=== PATIENT | female | born 1955 | race Two or more races ===

== ENCOUNTER 2022-04-04 15:29 | Emergency (ER) | payer OTHER ==
[~2022-04-04] VITALS: Ht 160 cm; Wt 68.0 kg
--- NOTE | 2022-04-04 15:40 | NUR ---
BIBA RA7 "from Home Cough/HERNADEZ/weakness started today". PLACED IN BED, AAOX4, BREATHING EVEN AND UNLABORED SATURATING AT 98%RA.
--- NOTE | 2022-04-04 15:45 | NUR ---
BLOOD DRAWN AND SENT TO LAB
[2022-04-04] MEDS ORDERED: KETOROLAC TROMETHAMINE INJ 30 MG/ML VIAL IV ONE (16:00)
[2022-04-04] MEDS ORDERED: IV NS 0.9% 1,000 ML BAG IV ONE (16:00)
[2022-04-04] MEDS ORDERED: KETOROLAC TROMETHAMINE 15 MG/ML VIAL ONE (16:01)
[2022-04-04 16:22] LABS: BASOPHILS % (AUTO) 0.4 % (0.0-2.0); EOSINOPHILS % (AUTO) 1.7 % (0.0-6.0); HEMATOCRIT 47 % (33-45); LYMPHOCYTES # (AUTO) 1.7 K/uL (0.8-4.8); MEAN CORPUSCULAR HGB CONC 32 g/dl (31.0-36.0); MEAN CORPUSCULAR VOLUME 90 fL (82-100); MONOCYTES # (AUTO) 0.5 K/uL (0.1-1.30); MONOCYTES % (AUTO) 4.9 % (2.0-12.0); PLATELET COUNT (AUTO) 304 K/uL (150-450); RED BLOOD CELL COUNT(AUTO) 5.16 MIL/uL (4.0-5.2); WHITE BLOOD COUNT (AUTO) 10.3 K/uL (4.3-11.0)
[2022-04-04 16:40] LABS: CALCIUM, SERUM 9.5 mg/dL (8.5-10.1); CARBON DIOXIDE 29 mmol/L (21-32); CHLORIDE 94 mmol/L (98-107); CREATININE 1.2 mg/dL (0.6-1.3); GLUCOSE 259 mg/dL (74-106); POTASSIUM 3.9 mmol/L (3.5-5.1); SODIUM SERUM 132 mmol/L (136-145); UREA NITROGEN, BLOOD 19 mg/dL (7-18)
[2022-04-04 16:46] LABS: ALANINE AMINOTRANSFERASE 24 U/L (12-78); ALKALINE PHOSPHATASE 74 U/L (46-116); ASPARTATE AMINOTRANSFERASE 17 U/L (15-37); BILIRUBIN,DIRECT 0.1 mg/dL (0.0-0.2); BILIRUBIN,TOTAL 0.5 mg/dL (0.2-1.0); TOTAL PROTEIN, SERUM 8.2 g/dL (6.4-8.2)
[2022-04-04 16:55] LABS: THYROID STIMULATING HORMONE 1.251 uIU/mL (0.358-3.74)
--- NOTE | 2022-04-04 17:42 | NUR ---
URINE SAMPLE SENT TO LAB
[2022-04-04 18:01] LABS: BILIRUBIN,URINE NEGATIVE (NEGATIVE); COLOR,URINE YELLOW (YELLOW); LEUKOCYTE ESTERASE ,URINE NEGATIVE (NEGATIVE); NITRITE, URINE NEGATIVE (NEGATIVE); PROTEIN,URINE NEGATIVE (NEGATIVE); UGLUCOSE 1+ mg/dL (NEGATIVE); UROBILINOGEN,URINE 0.2 EU/dL (0.2)
[2022-04-04 18:22] LABS: BACTERIA,URINE None seen /HPF (None Seen); RBC,URINE 0-2 /HPF (0-2); WBC,URINE 0-2 /HPF (0-3)
[2022-04-04] MEDS ORDERED: IBUP-1955 PO (18:34)
[2022-04-04] MEDS ORDERED: BENZ-13 PO (18:34)
--- NOTE | 2022-04-04 19:00 | NUR ---
IV removed. Catheter intact and site benign. Pressure and 4x4 applied to site. No bleeding noted.Patient discharged to home in stable condition. Written and verbal after care instructions given. Patient verbalizes understanding of instruction.
[2022-04-04 19:08] VITALS: BP 135/89
== END 2022-04-04 19:00 | disposition home or self-care (01) ==
LOC: ER 15:45
DX: J06.9 Acute upper respiratory infection, unspecified (principal); B97.89 Other viral agents as the cause of diseases classified elsewhere; Z20.822 Contact with and (suspected) exposure to COVID-19; R51.9 Headache, unspecified; R53.83 Other fatigue; I10 Essential (primary) hypertension; E11.65 Type 2 diabetes mellitus with hyperglycemia
CPT/HCPCS: 99285; 96374; 71045; 96361; 93005; 87804; 85025; 80048; 80076; 81001; 36415; 84443; 84484; 83880; 82962; U0003; J7030; J1885; C9803